=== PATIENT | female | born 1930 | race Caucasian/White ===

== ENCOUNTER 2016-07-26 00:40 | Inpatient (IN) | payer OTHER ==
[~2016-07-26] VITALS: Ht 165.1 cm; Wt 68.0 kg
--- NOTE | 2016-07-26 00:49 | NUR ---
BIBA TO ER BED 5
[2016-07-26 00:54] VITALS: BP 160/85
--- NOTE | 2016-07-26 01:08 | NUR ---
PATIENT NEMO FROM [facility] PRESENTS TO ED WITH RT. HIP PAIN . [facility] STATES THE PT HAD UNWITNESSED FALL AND IS NOW C/O RT. HIP PAIN. PT HAS HX OF DEMENTIA AND [facility] STATES HER CURRENT MENTATION IS HER BASELINE . DENIES N/V/D; SKIN IS PINK/WARM/DRY; AAOX4 WITH EVEN AND STEADY GAIT; LUNGS CLEAR BL; HR EVEN AND REGULAR; PT DENIES ANY FEVER, CP, SOB, OR COUGH AT THIS TIME; PATIENT STATES PAIN OF 10/10 AT THIS TIME; VSS; PATIENT POSITIONED FOR COMFORT; HOB ELEVATED; BEDRAILS UP X2; BED DOWN. ER MD MADE AWARE OF PT STATUS.
--- NOTE | 2016-07-26 01:35 | NUR ---
Patient being evaluated by physician at bedside.
[2016-07-26] MEDS ORDERED: fentaNYL 0.05 MG/ML VIAL IM ONE (01:40)
[2016-07-26] MEDS ORDERED: KETOROLAC 30 MG/ML VIAL IM ONE (05:30)
--- NOTE | 2016-07-26 05:30 | NUR ---
PT SON AT BEDSIDE
[2016-07-26] MEDS ORDERED: MORPHINE SULFATE 4 MG/ML SYR IVP PRN (06:20)
[2016-07-26] MEDS ORDERED: ONDANSETRON 4 MG/2 ML VIAL IVP PRN (06:20)
[2016-07-26] MEDS ORDERED: ACETAMINOPHEN 325 MG TAB PO PRN (06:20)
[2016-07-26] MEDS ORDERED: MORPHINE SULFATE 4 MG/ML SYR IVP ONE (06:40)
--- NOTE | 2016-07-26 06:47 | NUR ---
Patient will be admitted to care of DR. MONROE. Admited to Med/Surg. Will go to room 123A. Belongings list completed. Report to NETTIE ROJAS.
--- NOTE | 2016-07-26 07:06 | NUR ---
Pt report given to NETTIE ROJAS. Transfer of care at this time.
--- NOTE | 2016-07-26 07:15 | NUR ---
DR ZAVALETA IN TO SEE PT. PT TO HAVE SURGERY AND CAST AT 1300. WILL FOLLOW UP.
--- NOTE | 2016-07-26 07:15 | NUR ---
RECEIVED REPORT FROM NETTIE BRENNAN. PT IS AAOX2, CONFUSED. PT ON ROOM AIR WITH NO S/S OF DISTRESS NOTED. IV TO RIGHT AC #22, PATENT AND INTACT. NO N/V OR PAIN INDICATED. BANDAGE NOTED TO RIGHT LOWER LEG. ALL SAFETY PRECAUTIONS IN PLACE, SIDE RAILSX2, BED IN LOW POSITION, AND WILL PERFORM FREQUENT ROUNDS.
--- NOTE | 2016-07-26 07:30 | NUR ---
PT PULLED OUT IV. WILL INSERT NEW IV.
[2016-07-26 08:00] VITALS: BP 142/76
--- NOTE | 2016-07-26 08:00 | NUR ---
TALKED TO SURGERY DEPARTMENT, PT DOES NOT NEED BLOOD. WILL FOLLOW UP WITH BLOOD BANK.
--- NOTE | 2016-07-26 08:20 | NUR ---
PATIENT HAS BEEN SCREENED AND CATEGORIZED MODERATE NUTRITION RISK. PATIENT WILL BE SEEN WITHIN 3-5 DAYS OF ADMISSION. 07/28/16-07/30/[address]
[2016-07-26] MEDS: FAMOTIDINE 20 MG/2 ML VIAL IVP SCH (09:00)
[2016-07-26] MEDS: NACL 0.9% 1,000 ML IV SCH ×2 (10:37→16:16)
--- NOTE | 2016-07-26 10:43 | NUR ---
PT TOLERATED IV FLUIDS WELL. WILL CONTINUE TO MONITOR.
--- NOTE | 2016-07-26 12:05 | NUR ---
FAXED INITIAL REVIEW TO [facility] [phone] PHONE MALINA [phone]
--- NOTE | 2016-07-26 12:30 | NUR ---
PT PULLED OUT IV. IV STARTED TO LEFT AC #20 PATENT AND INTACT.
--- NOTE | 2016-07-26 12:40 | NUR ---
PT TAKEN TO SURGERY.
--- NOTE | 2016-07-26 13:20 | NUR ---
PT RETURNED FORM SURGERY. VSS.
--- NOTE | 2016-07-26 14:04 | NUR ---
PT C/O 10/10 PAIN TO RIGHT LEG. BP 148/106, HR 85. ADMINISTERED MORPHINE ORDERED. PT TOLERATED WELL. WILL CONTINUE TO MONITOR.
--- NOTE | 2016-07-26 15:49 | NUR ---
TALKED TO DR DELACRUZ WILL FOLLOW UP ON ORDERS.
[2016-07-26] MEDS ORDERED: HALOPERIDOL IM 5 MG/ML VIAL IM PRN (15:50)
[2016-07-26 16:00] VITALS: BP 122/58
[2016-07-26] MEDS: LORazepam 2 MG/ML VIAL IVP PRN (17:27)
--- NOTE | 2016-07-26 17:35 | NUR ---
PT RESTLESS, ADMINISTERED ATIVAN ORDERED. VSS. WILL CONTINUE TO MONITOR.
--- NOTE | 2016-07-26 19:28 | NUR ---
RECEIVED PT FROM MARTINEZ Burr RN AT BEDSIDE FOR CONTINUITY OF CARE. PT NOTED SLEEPING, IN STABLE CONDITION. NO DISTRESS.
--- NOTE | 2016-07-26 20:18 | NUR ---
SHIFT ASSESSMENT DONE AT THIS TIME. PT IS NOTED SLEEPING, PT SEDATED AT THIS TIME. UNABLE TO ASSESS ORIENTATION STATUS. VITAL SIGNS TAKEN AND ARE STABLE, NOTED TEMPERATURE IS 99.5F, BP 139/87, HR 83, RR 14, PT ON ROOM AIR WITH OXYGEN SATURATION AT 97% AND NO DISCOMFORT OR PAIN NOTED. NOTED SKIN INTACT AND IV ACCESS TO LT AC #20G, PATENT AND INTACT WITH NS INFUSING. SCD IN PLACE TO LEFT LEG. RT LOWER LEG, NOTED CAST. PT PERIPHERAL FOOT INTACT, SKIN COLOR NORMAL. SAFETY PRECAUTIONS IN PLACE, BED ALARM ON, AND CALL LIGHT WITHIN REACH. WILL CONTINUE TO MONITOR PT.
--- NOTE | 2016-07-26 21:26 | NUR ---
PT STILL SLEEPING AT THIS TIME, NO DISTRESS NOTED. CALL LIGHT WITHIN REACH.
[2016-07-27] VITALS: BP 141/62
--- NOTE | 2016-07-27 00:47 | NUR ---
PT NOTED SLEEPING, NO DISTRESS. ABLE TO FOLLOW COMMAND, DENIES PAIN. VITAL SIGNS REMAINS STABLE, PT OXYGEN SATURATION AT 95%. WILL CONTINUE TO MONITOR.
--- NOTE | 2016-07-27 02:01 | NUR ---
PT SLEEPING NO DISTRESS. WILL CONTINUE TO MONITOR.
[2016-07-27] MEDS: NACL 0.9% 1,000 ML IV SCH ×3 (02:16→22:54)
[2016-07-27] MEDS: MORPHINE SULFATE 2 MG/ML SYR IVP PRN ×2 (04:01→20:46)
--- NOTE | 2016-07-27 04:01 | NUR ---
PROVIDED PT WITH PAIN MEDICATION PER MD ORDERS, SEE eMAR. PT C.O. PAIN TO RT LEG. ASSESSED CAST, IN PLACE DISTAL TOES COLOR NORMAL. WILL CONTINUE TO MONITOR.
--- NOTE | 2016-07-27 07:15 | NUR ---
ENDORSED PT TO JUN AND JOSHUA NURSES FOR CONTINUITY OF CARE, PT IN STABLE CONDITION, NO ACUTE DISTRESS NOTED.
--- NOTE | 2016-07-27 07:16 | NUR ---
PT RECEIVED FROM NETTIE FULTON ASLEEP BUT EASILY AWAKEN. NO S/S OF RESPIRATORY DISTRESS OR DISCOMFORT. AAOX1 WITH PERIODS OF CONFUSION. WITH IV ACCESS ON LEFT AC 20G INFUSING FLUIDS WELL. INITIAL ASSESSMENT DONE. DISCUSSED PLAN OF CARE, PT VERBALIZED UNDERSTANDING BUT NEEDS REINFORCEMENT. CALL LIGHT WITHIN REACH, WILL CONTINUE TO MONITOR.
[2016-07-27 08:00] VITALS: BP 148/85
[2016-07-27] MEDS: FAMOTIDINE 20 MG/2 ML VIAL IVP SCH (08:35)
--- NOTE | 2016-07-27 08:38 | NUR ---
DUE MEDS GIVEN, PT TOLERATED WELL. CALL LIGHT WITHIN REACH, WILL CONTINUE TO MONITOR.
[2016-07-27] MEDS: LORazepam 2 MG/ML VIAL IVP PRN (09:32)
--- NOTE | 2016-07-27 11:40 | NUR ---
PT SLEEPING AT THIS TIME. NO S/S OF RESPIRATORY DISTRESS OR DISCOMFORT. ALL NEEDS MET AT THIS TIME. CALL LIGHT WITHIN REACH. WILL CONTINUE TO MONITOR
--- NOTE | 2016-07-27 11:48 | NUR ---
CM NOTE CONCURRENT REVIEW FAXED TO [facility] / FAX# [phone], ATTN: MALINA [phone]
--- NOTE | 2016-07-27 12:37 | NUR ---
CM NOTE PER DONITA RADFORD FOR [facility], AUTHORIZED SNF'S FOR POSSIBLE XFER FOR PHYSICAL THERAPY: - [facility] - [facility] - [facility] - [facility]
--- NOTE | 2016-07-27 14:42 | NUR ---
PT AWAKE LYING ON BED WATCHING TV. SPOKE TO SON, AGREED FOR PT TO RECEIVE FLU AND PNEUMONIA VACCINE.
--- NOTE | 2016-07-27 15:11 | NUR ---
PT AWAKE WITH RELATIVE AT BEDSIDE. ALL NEEDS MET AT THIS TIME. SAFETY PRECAUTIONS ENFORCED. CALL LIGHT WITHIN REACH, WILL CONTINUE TO MONITOR.
[2016-07-27 16:00] VITALS: BP 145/59
--- NOTE | 2016-07-27 17:44 | NUR ---
PT AWAKE LYING ON BED WATCHING TV. NO S/S OF RESPIRATORY DISTRESS. ALL NEEDS MET AT THIS TIME. CALL LIGHT WITHIN REACH. SAFETY PRECAUTIONS REENFORCED. WILL CONTINUE TO MONITOR.
--- NOTE | 2016-07-27 18:30 | NUR ---
STRAIGHT CATHETERIZATION DONE FOR UA. PT TOLERATED WELL.
[2016-07-27] MEDS ORDERED: PNEUMOCOCCAL VACCINE 23 MCG/0.5 ML VIAL IMVAC SCH (19:05)
[2016-07-27] MEDS ORDERED: INFLUENZA VIRUS VACCINE QUAD 0.5 ML SYR IMVAC SCH (19:05)
--- NOTE | 2016-07-27 19:15 | NUR ---
ENDORSED PT TO BEN CHAVIS FOR CONTINUITY OF CARE IN STABLE CONDITION
--- NOTE | 2016-07-27 19:16 | NUR ---
RECD. RESTING IN BED, AWAKE, A/OX1, CONFUSED, TRYING TO GET OUT OF BED. ORIENTED TO HOSPITAL SETTING. IV OF NS AT 100 ML/HR INFUSING LEFT AC G20. RIGHT LEG WITH SHORT LEG CAST WITH MITESH WRAPPED BANDAGE. LEFT LEG ON SEQUENTIAL. SAFETY MEASURES ENFORCED. INSTRUCTED PATIENT NOT TO GET OUT OF BED, LEAST SHE MAY HAVE ANOTHER FALL. PLAN OF CARE DISCUSSED. NEEDS REINFORCEMENT. NO APPEARANCE OF PAIN NOTED 0/10.
--- NOTE | 2016-07-27 19:30 | NUR ---
Patient's Plan of Care was discussed and reviewed with SKEIN WASHER: KESHIA
--- NOTE | 2016-07-27 21:20 | NUR ---
SLEEPING COMFORTABLY IN BED AFTER PAIN MEDICATION GIVEN BY RN.
--- NOTE | 2016-07-27 22:30 | NUR ---
WOKE UP AND TRIED TO GET OUT OF BED. REORIENTED TO HOSPITAL SETTING. WENT BACK TO SLEEP AFTER A FEW MINUTES.
--- NOTE | 2016-07-27 23:00 | NUR ---
IV IN THE LEFT AC G20 CHECKED, STILL FLUSHING WELL AND WITH GOOD RETURN BACKFLOW. COVERED WITH NEW KERLIX.
[2016-07-28] VITALS: BP 146/58
--- NOTE | 2016-07-28 | NUR ---
WOKE UP AGAIN AND TRIED TO GET OUT OF BED. REORIENTED TO TIME AND PLACE. WENT BACK TO SLEEP AFTER 10 MINUTES.
--- NOTE | 2016-07-28 01:30 | NUR ---
WOKE UP FOR A FEW MINUTES, WENT BACK TO SLEEP AFTER CLEANING AND REPOSITIONING.
--- NOTE | 2016-07-28 04:45 | NUR ---
AWAKE, TRYING TO GET OUT OF BED. CLEANSED AND REPOSITIONED IN BED FOR COMFORT.
[2016-07-28] MEDS: MORPHINE SULFATE 2 MG/ML SYR IVP PRN (05:06)
--- NOTE | 2016-07-28 05:40 | NUR ---
SLEEPING COMFORTABLY IN BED.
--- NOTE | 2016-07-28 07:10 | NUR ---
AWAKE, TRYING TO GET OUT OF BED. ENDORSED TO NETTIE CAMPA FOR CLOSE MONITORING AND CONTINUITY OF CARE.
--- NOTE | 2016-07-28 07:11 | NUR ---
RECEIVED REPORT FROM NIGHT NURSE PALMIRA CONTRERAS. PATIENT APPEARED TO BE CALM, AWAKE AND RESTING WELL IN BED. AAOX1 WITH CONFUSION AND FORGETFULNESS. NO SIGN OF DISTRESS NOTED. INITIAL ASSESSMENT DONE. SKIN INTACT. PATIENT HAS CAST TO RIGHT LEG, RIGHT FOOT AND TOE FINGERS CIRCULATION ASSESSMENT DONE AND WNL. PATIENT DENIED ANY PAIN OR CHEST DISCOMFORT AT THIS TIME. PATIENT ALSO HAS IV 20G TO LEFT AC INFUSING WELL WITH IVF. PLAN OF CARE, PAIN MANAGEMENT AND MEDICATION REGIMENTS DISCUSSED WITH REENFORCEMENT GIVEN. PATIENT UNABLE TO VERBALIZED UNDERSTANDING. SAFETY MEASURES WITH CLOSE MONITOR IN PLACE. CALL LIGHT WITHIN REACH. WILL CONTINUE TO MONITOR.
[2016-07-28 08:00] VITALS: BP 120/64
[2016-07-28] MEDS: FAMOTIDINE 20 MG/2 ML VIAL IVP SCH (08:25)
[2016-07-28] MEDS: NACL 0.9% 1,000 ML IV SCH ×2 (08:25→18:16)
--- NOTE | 2016-07-28 08:25 | NUR ---
MORNING DUE MEDICATION GIVEN, PATIENT TOLERATED WELL. NO SIGN OF DISTRESS NOTED AT THIS TIME. PATIENT DENIED ANY PAIN OR DISCOMFORT. ALL NEEDS ARE MET. CALL LIGHT WITHIN REACH. WILL CONTINUE TO MONITOR.
--- NOTE | 2016-07-28 08:28 | NUR ---
MORNING DUE MEDICATION GIVEN, PATIENT TOLERATED WELL. NO SIGN OF DISTRESS NOTED. PATIENT DENIED ANY PAIN OR DISCOMFORT. ALL COMFORT MEASURE GIVEN, PATIENT BACK TO SLEEP NOW. CALL LIGHT WITHIN REACH. WILL CONTINUE TO MONITOR.
[2016-07-28] MEDS ORDERED: ATIVAN2 MG/M1 IVP (08:34)
[2016-07-28] MEDS ORDERED: NOVAPLUS ONDA2 MG/M1 IVP (08:34)
[2016-07-28] MEDS ORDERED: MORPHINE SU2 MG/1 ML IVP (08:34)
[2016-07-28] MEDS ORDERED: ACETAMINOPHEN325 M2 PO (08:34)
--- NOTE | 2016-07-28 10:18 | NUR ---
CM NOTE CONCURRENT REVIEW FAXED TO [facility] / FAX# [phone], ATTN: MALINA [phone]
--- NOTE | 2016-07-28 10:50 | NUR ---
PATIENT SLEEP WELL IN BED. NO SIGN OF DISTRESS NOTED. ALL SAFETY MEASURE IN PLACE. CALL LIGHT WITHIN REACH. WILL CONTINUE TO MONITOR.
--- NOTE | 2016-07-28 13:01 | NUR ---
PATIENT TRYING TO GET OUT OF BED. INSTRUCTED PATIENT STAY IN BED FOR SAFELY. REENFORCE NEEDED DUE TO PATIENT UNABLE TO VERBALIZE UNDERSTANDING. CLOSE MONITOR IN PLACE. CALL LIGHT WITHIN REACH. WILL CONTINUE TO MONITOR.
--- NOTE | 2016-07-28 13:38 | NUR ---
SS NOTE: MESSAGE LEFT FOR PT'S SON, CHRIS REGARDING SNF PLACEMENT FOR PHYSICAL THERAPY I SPOKE WITH PT'S DTR-IN-LAW, JOHN (CHRIS'S ) REGARDING SHORT TERM SNF PLACEMENT FOR PHYSICAL THERAPY. SHE STATED THAT THEY ARE AWARE THAT PT WILL NEED TO GO TO SNF BEFORE SHE CAN RETURN TO [facility] AND THEY ARE IN AGREEMENT WITH THAT PLAN.
--- NOTE | 2016-07-28 15:24 | NUR ---
SS NOTE: PER ANGELA FROM [facility], THEY ARE UNABLE TO ACCEPT PT PER DONNA FROM [facility], PT WOULD HAVE TO BE OFF MITTENS FOR 24 HOURS IN ORDER FOR THEM TO CONSIDER PT PER CAYLA FROM [facility], NO FEMALE BEDS AVAILABLE MESSAGE LEFT FOR RYAN AT [facility] REGARDING BED AVAILABILITY ADDITIONAL INQUIRIES SENT TO: [facility], [facility]
--- NOTE | 2016-07-28 15:44 | NUR ---
SS NOTE: PER TIKI FROM [facility] ([phone]), PT CAN GO TO ROOM 36B UNDER DR. HARMAN MCKAY ONCE THEY RECEIVE AUTH FROM PT'S INSURANCE. I SPOKE WITH [facility] DONITA RADFORD AND SHE STATED THAT SHE WILL WORK ON TRANSPORT AUTH WELL SNF AUTH.
[2016-07-28 16:00] VITALS: BP 139/60
--- NOTE | 2016-07-28 16:00 | NUR ---
PATIENT ACCIDENTLY REMOVED IV. PRESSURE APPLIED TO RIGHT AC. NO ACTIVE BLEEDING NOTED. WILL CONTINUE TO MONITOR.
--- NOTE | 2016-07-28 16:00 | NUR ---
SS NOTE: PER [facility] DONITA RADFORD, AUTH FOR [facility] IS [id number] AND AUTH FOR [facility] IS [id number].
--- NOTE | 2016-07-28 16:06 | NUR ---
SS NOTE: I SPOKE WITH PT'S DTR-IN-LAW, JOHN AND PROVIDED HER WITH [facility]'S CONTACT INFORMATION. SHE STATED THAT PT'S SON, CHRIS CANNOT HAVE ACCESS TO A PHONE AT WORK SO SHE WILL MAKE SURE THAT HE GETS THE MESSAGE THAT PT IS GOING THERE TODAY.
--- NOTE | 2016-07-28 16:26 | NUR ---
CM NOTE PATIENT TO BE PICKED UP BY [facility] VIA GURNEY GOING TO [facility] RM 36B. ETA 1930. KATHERYN SHEFFIELD MADE AWARE.
--- NOTE | 2016-07-28 17:20 | NUR ---
PATIENT CONTINUE TO TRY TO GET OUT OF BED. ASSISTED PATIENT BACK TO BED SAFELY. NO SIGN OF DISTRESS NOTED AT THIS TIME. DENIED ANY PAIN OR DISCOMFORT. CALL LIGHT WITHIN REACH. WILL CONTINUE TO MONITOR.
--- NOTE | 2016-07-28 17:40 | NUR ---
PATIENT REPORT GIVEN TO AYESHA CONTRERAS AT [facility].
--- NOTE | 2016-07-28 19:24 | NUR ---
ENDORSED PATIENT CURRENT PLAN OF CARE TO NIGHT NURSE REED SHEFFIELD, PATIENT RESTING WELL IN BED WITH NO SIGN OF DISTRESS NOTED.
--- NOTE | 2016-07-28 19:30 | NUR ---
RECEIVED REPORT FROM KATHERYN SHEFFIELD AT BEDSIDE. PT IS ALERT AWAKE ORIENTED X1 WITH CONFUSION. INITIAL ASSESSMENT DONE. NO S/S OF RESPIRATORY DISTRESS OR SOB NOTED. NO C/O PAIN OR ANY DISCOMFORT AT THIS TIME. PT. IS READY TO BE DISCHARGED AND WILL BE GOING TO [facility] RM 32A. JUST WAITING FOR [facility] TO PICK HIM UP. DISCHARGE INSTRUCTION GIVEN AND VERBALIZED UNDERSTANDING AND NEED TO BE REINFORCED. CALL LIGHT WITHIN REACH. WILL CONTINUE TO MONITOR.
--- NOTE | 2016-07-28 20:30 | NUR ---
[facility] CAME TO PICK-UP PATIENT. GIVE REPORT TO [facility] AT BEDSIDE. THEY LEFT THE UNIT AROUND 2029. PT IS STABLE DURING THE DISCHARGE.
== END 2016-07-28 20:30 | DRG 563 ==
LOC: MED 00:40 → MTU 06:21
PROVIDERS: ADMIT Hospitalist; ATTEND Hospitalist
PROC: 0QSGXZZ Reposition Right Tibia, External Approach (ICD-10-PCS; principal; 2016-07-26)
PROC: 0QSJXZZ Reposition Right Fibula, External Approach (ICD-10-PCS; 2016-07-26)
PROC: 2W6QXZZ Traction of Right Lower Leg (ICD-10-PCS; 2016-07-26)
PROC: 2W3LX2Z Immobilization of Right Lower Extremity using Cast (ICD-10-PCS; 2016-07-26)
DX: S82.241A Displaced spiral fracture of shaft of right tibia, initial encounter for closed fracture (principal); N39.0 Urinary tract infection, site not specified; E44.1 Mild protein-calorie malnutrition; G30.9 Alzheimer's disease, unspecified; S82.831A Other fracture of upper and lower end of right fibula, initial encounter for closed fracture; F02.80 Dementia in other diseases classified elsewhere, unspecified severity, without behavioral disturbance, psychotic disturbance, mood disturbance, and anxiety; W18.39XA Other fall on same level, initial encounter; Y93.89 Activity, other specified; Y92.89 Other specified places as the place of occurrence of the external cause; Y99.8 Other external cause status

== ENCOUNTER 2016-08-01 05:55 | Emergency (ER) | payer OTHER ==
[~2016-08-01] VITALS: Ht 160 cm; Wt 63.5 kg
[~2016-08-01 05:55] MED LIST: ACETAMINOPHEN325 M2 PO; ATIVAN2 MG/M1 IVP; MORPHINE SU2 MG/1 ML IVP; NOVAPLUS ONDA2 MG/M1 IVP
--- NOTE | 2016-08-01 05:59 | NUR ---
PT NEMO BLS. TAKEN TO BED 7
[2016-08-01 06:05] VITALS: BP 139/59
--- NOTE | 2016-08-01 06:05 | NUR ---
86YO PATIENT PRESENTS TO ED WITH OPEN WOUND ON BACK OF HEAD. PT STATES FELL AND HIT HEAD . DENIES N/V/D; SKIN IS PINK/WARM/DRY; AAOX4 WITH EVEN AND STEADY GAIT; LUNGS CLEAR BL; HR EVEN AND REGULAR; PT DENIES ANY FEVER, CP, SOB, OR COUGH AT THIS TIME; PATIENT STATES PAIN OF 8/10 AT THIS TIME; VSS; PATIENT POSITIONED FOR COMFORT; HOB ELEVATED; BEDRAILS UP X2; BED DOWN. ER MD MADE AWARE OF PT STATUS.
--- NOTE | 2016-08-01 06:13 | NUR ---
Dr. Rollins evaluating patient at bedside.
--- NOTE | 2016-08-01 07:26 | NUR ---
REPORT RECIVED FROM GLUE WHEEL OPERATORMitesh PARRA, PATIENT RESTING COMFORTABLY NO C/O PAIN AT THIS TIME, VSS, BEDRAILS UP X2, DAUGHTER IN-LAW AT BEDSIDE
--- NOTE | 2016-08-01 08:01 | NUR ---
FAMILY S/W DR. VILLARREAL
--- NOTE | 2016-08-01 08:30 | NUR ---
REPORT GIVEN TO NETTIE FROST AT [facility]
[2016-08-01 09:02] VITALS: BP 112/64
--- NOTE | 2016-08-01 09:02 | NUR ---
Patient Tranfers to outside Facility, [facility] Physician: Location: [facility]
--- NOTE | 2016-08-01 09:02 | NUR ---
Patient discharged with v/s stable. Report given to EMT Rob, Written and verbal after care instructions given and explained. Patient verbalized understanding. Ambulance Transport with to longterm. All questions addressed prior to discharge. Advised to follow up with PMD.
== END 2016-08-01 09:02 ==
LOC: MED 05:55
DX: S01.01XA Laceration without foreign body of scalp, initial encounter (principal); X58.XXXA Exposure to other specified factors, initial encounter; Y93.89 Activity, other specified; Y92.89 Other specified places as the place of occurrence of the external cause; Y99.8 Other external cause status